=== PATIENT | female | born 1980 | race Hispanic/Latino ===

== ENCOUNTER 2019-09-11 22:37 | Emergency (ER) | payer SELFPAY ==
[2019-09-11 23:44] LABS: Absolute Lymphocytes (CBC) 1.2 K/uL (0.7-4.9); Basophils % 0.3 % (0-1.3); Hematocrit 41.5 % (36.0-45.0); Lymphocytes % 21.6 % (15.3-44.8); MPV 7.9 fL (7.6-11.3); RBC Red Blood Cell Count 4.83 M/uL (3.86-4.86)
[2019-09-12] MEDS ORDERED: ONDANSETRON 4 MG/2 ML VIAL ONE (00:03)
[2019-09-12] MEDS ORDERED: NA CHLORIDE 0.9% 1,000 ML ONE (00:03)
[2019-09-12 00:06] LABS: ALT/SGPT 48 U/L (12-78); AST/SGOT 59 U/L (15-37); Albumin 3.7 g/dL (3.4-5.0); Alkaline Phosphatase 81 U/L (45-117); BUN Blood Urea Nitrogen 7 mg/dL (7-18); Bicarbonate 26 mmol/L (21-32); Bilirubin Direct < 0.1 mg/dL (0-0.2); Bilirubin Total 0.3 mg/dL (0.2-1.0); Glucose Level 101 mg/dL (74-106); Lipase 220 U/L (73-393); Potassium 3.2 mmol/L (3.5-5.1); Protein, Total 8.7 g/dL (6.4-8.2); Sodium Level 138 mmol/L (136-145)
[2019-09-12 00:57] LABS: Urine RBC TNTC /HPF (NONE SEEN)
[2019-09-12 00:58] LABS: Urine Bacteria <20 /HPF (<20)
[2019-09-12] MEDS ORDERED: POTASSIUM CL SA 10 MEQ TAB PO ONE (02:00)
--- NOTE | 2019-09-12 02:27 | ER ---
Nurse's Notes [facility] Name: Jaelyn Johnson Age: 39 yrs Sex: Female : 1980 Arrival Date: 09/11/2019 Time: 22:40 Bed 8 Private MD: Diagnosis: Urinary tract infection, site not specified;Nausea and vomiting;Diarrhea, unspecified;Pneumonia, unspecified organism Presentation: 09/10 22:45 Chief complaint: Friend and/or Co-Worker states: that pt has had weakness and diarrhea. fc Denies any abd pain. Also having nausea and vomiting. Has fever on and off. Was seen by PCP on Tuesday and was told she had a UTI and intestinal infection. Was placed on Pepto, Tylenol, Cipro, Flagyl. Coronavirus screen: Patient denies fever greater than 100.4F, cough, shortness of breath, or difficulty breathing. Ebola Screen: Patient negative for fever greater than or equal to 101.5 degrees Fahrenheit, and additional compatible Ebola Virus Disease symptoms Patient denies exposure to infectious person. Patient denies travel to an Ebola-affected area in the 21 days before illness onset. Initial Sepsis Screen: Does the patient meet any 2 criteria? HR > 90 bpm. Yes Does the patient have a suspected source of infection? No. Patient's initial sepsis screen is negative. Risk Assessment: Do you want to hurt yourself or someone else? Patient reports no desire to harm self or others. Onset of symptoms was September 04, 2019. Care prior to arrival: None. Transition of care: patient was not received from another setting of care. 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 - Social history:: Smoking status: Patient denies any tobacco usage or history of. Patient/guardian denies using alcohol, street drugs. Screenin:05 Abuse screen: Denies threats or abuse. Nutritional screening: No deficits noted. ea Tuberculosis screening: No symptoms or risk factors identified. Fall Risk None identified. Assessment: 23:35 General: Appears uncomfortable, Behavior is appropriate for age. Pain: Denies pain. ea Neuro: Level of Consciousness is awake, alert, obeys commands, Oriented to person, place, time, situation. Respiratory: Airway is patent Respiratory effort is even, unlabored, Respiratory pattern is regular, symmetrical. GI: Abdomen is non-distended. Derm: Skin is pink, warm \T\ dry. 09/11 00:38 Reassessment: Patient and/or family updated on plan of care and expected duration. Pain ea level reassessed. Patient is alert, oriented x 3, equal unlabored respirations, skin warm/dry/pink. Returned from CT. 01:50 Reassessment: Patient and/or family updated on plan of care and expected duration. Pain ea level reassessed. Patient is alert, oriented x 3, equal unlabored respirations, skin warm/dry/pink. 02:14 Reassessment: Patient and/or family updated on plan of care and expected duration. Pain ea level reassessed. Patient is alert, oriented x 3, equal unlabored respirations, skin warm/dry/pink. 02:36 Reassessment: Patient and/or family updated on plan of care and expected duration. Pain ea level reassessed. Patient is alert, oriented x 3, equal unlabored respirations, skin warm/dry/pink. Discharge instruction given to patient, verbalized the understanding of instruction. Pt left ED ambulatory accompanied by family. Vital Signs: 09/10 22:45 BP 118 / 85; Pulse 100; Resp 16; Temp 98.1(O); Pulse Ox 98% on R/A; Weight 68.04 kg fc (R); Height 5 ft. 3 in. (160.02 cm) (R); Pain /10; 09/11 00:40 BP 141 / 94; Pulse 94; Resp 18; Pulse Ox 99% ; ea 01:30 BP 121 / 81; Pulse 85; Resp 18; Pulse Ox 98% on R/A; ea 02:19 BP 117 / 75; Pulse 88; Resp 17; Pulse Ox 98% on R/A; mt 09/10 22:45 Body Mass Index 26.57 (68.04 kg, 160.02 cm) ED Course: 03/24 22:40 Patient arrived in ED. cl3 22:51 Triage completed. fc 22:52 [facility]C [facility]. kb 22:52 Christopher Feliciano MD is Attending Physician. kb 22:52 Arm band placed on Patient placed in an exam room, on a stretcher. fc 23:05 Shoshana Yeh RN is Primary Nurse. ea 23:05 Patient has correct armband on for positive identification. Bed in low position. Call ea light in reach. Side rails up X2. 23:35 Inserted saline lock: 20 gauge in left antecubital area, using aseptic technique. Blood ea collected. 09/11 00:45 CT Abd/Pelvis - IV Contrast Only In Process Unspecified. EDMS 01:58 Chest Single View XRAY In Process Unspecified. EDMS 02:35 IV discontinued, intact, bleeding controlled, No redness/swelling at site. Pressure ea dressing applied. 02:37 No provider procedures requiring assistance completed. ea Administered Medications: 00:20 Drug: NS 0.9% 1000 ml Route: IV; Rate: 1000 ml; Site: left antecubital; ea 02:06 Follow up: Response: No adverse reaction; IV Status: Completed infusion; IV Intake: ea 1000ml 00:20 Drug: Zofran (Ondansetron) 4 mg Route: IVP; Site: left antecubital; ea 02:06 Follow up: Response: No adverse reaction ea 02:06 Drug: Potassium Chloride 20 mEq Route: PO; ea 02:28 Follow up: Response: No adverse reaction ea Intake: 02:06 IV: 1000ml; Total: 1000ml. ea Outcome: 02:27 Discharge ordered by . kb 02:37 Discharged to home ambulatory. ea 02:37 Condition: stable 02:37 Discharge instructions given to patient, Instructed on discharge instructions, follow up and referral plans. medication usage, Demonstrated understanding of instructions, follow-up care, medications, Prescriptions given X 1. 02:38 Patient left the ED. ea Signatures: Dispatcher [employer] EDMS Mariely uStton FNP-C FNP-Ckb Chretien, Felicia, RN RN fc Thompson, Moriah sc Shoshana Yeh RN RN ea Lewis, Charde cl3 Corrections: (The following items were deleted from the chart) 09/10 22:52 22:52 PSHx: None; fc fc
--- NOTE | 2019-09-12 02:27 | EDPHYS ---
Physician Documentation [facility] Name: Jaelyn Johnson Age: 39 yrs Sex: Female : 1980 Arrival Date: 09/11/2019 Time: 22:40 Bed 8 Private MD: KIM Physician Christopher Feliciano HPI: 09/10 23:38 This 39 yrs old Female presents to ER via Ambulatory with complaints of kb Vomiting/Diarrhea. 23:38 The patient presents to the emergency department with nausea, vomiting, diarrhea, kb abdominal pain. Onset: The symptoms/episode began/occurred 2 day(s) ago. Possible causes: unknown. The symptoms are aggravated by nothing. The symptoms are alleviated by nothing. Associated signs and symptoms: Pertinent positives: abdominal pain, diarrhea, nausea, vomiting, Pertinent negatives: anorexia, fever. Severity of symptoms: At their worst the symptoms were moderate in the emergency department the symptoms are unchanged. The patient has not experienced similar symptoms in the past. The patient has not recently seen a physician. Pt reports abd pain, n/v/d. Was seen at the [facility] and started on abx for UTI and colon infection, but still having symptoms. 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 - Social history:: Smoking status: Patient denies any tobacco usage or history of. Patient/guardian denies using alcohol, street drugs. ROS: 23:38 Constitutional: Negative for fever, chills, and weight loss, ENT: Negative for injury, kb pain, and discharge, Neck: Negative for injury, pain, and swelling, Cardiovascular: Negative for chest pain, palpitations, and edema, Respiratory: Negative for shortness of breath, cough, wheezing, and pleuritic chest pain, Back: Negative for injury and pain, : Negative for injury, bleeding, discharge, and swelling, MS/Extremity: Negative for injury and deformity, Skin: Negative for injury, rash, and discoloration, Neuro: Negative for headache, weakness, numbness, tingling, and seizure. 23:38 Abdomen/GI: Positive for abdominal pain, nausea, vomiting, and diarrhea, Negative for constipation, abdominal cramps, abdominal distension, anorexia. Exam: 23:38 Constitutional: This is a well developed, well nourished patient who is awake, alert, kb and in no acute distress. Head/Face: Normocephalic, atraumatic. ENT: Nares patent. No nasal discharge, no septal abnormalities noted. Tympanic membranes are normal and external auditory canals are clear. Oropharynx with no redness, swelling, or masses, exudates, or evidence of obstruction, uvula midline. Mucous membranes moist. Neck: Trachea midline, no thyromegaly or masses palpated, and no cervical lymphadenopathy. Supple, full range of motion without nuchal rigidity, or vertebral point tenderness. No Meningismus. Chest/axilla: Normal chest wall appearance and motion. Nontender with no deformity. No lesions are appreciated. Cardiovascular: Regular rate and rhythm with a normal S1 and S2. No gallops, murmurs, or rubs. Normal PMI, no JVD. No pulse deficits. Respiratory: Lungs have equal breath sounds bilaterally, clear to auscultation and percussion. No rales, rhonchi or wheezes noted. No increased work of breathing, no retractions or nasal flaring. Skin: Warm, dry with normal turgor. Normal color with no rashes, no lesions, and no evidence of cellulitis. MS/ Extremity: Pulses equal, no cyanosis. Neurovascular intact. Full, normal range of motion. Neuro: Awake and alert, GCS 15, oriented to person, place, time, and situation. Cranial nerves II-XII grossly intact. Motor strength 5/5 in all extremities. Sensory grossly intact. Cerebellar exam normal. Normal gait. 23:38 Abdomen/GI: Inspection: abdomen appears normal, Bowel sounds: normal, in all quadrants, Palpation: soft, in all quadrants, mild abdominal tenderness, in all quadrants. Vital Signs: 22:45 BP 118 / 85; Pulse 100; Resp 16; Temp 98.1(O); Pulse Ox 98% on R/A; Weight 68.04 kg fc (R); Height 5 ft. 3 in. (160.02 cm) (R); Pain /10; 09/11 00:40 BP 141 / 94; Pulse 94; Resp 18; Pulse Ox 99% ; ea 01:30 BP 121 / 81; Pulse 85; Resp 18; Pulse Ox 98% on R/A; ea 02:19 BP 117 / 75; Pulse 88; Resp 17; Pulse Ox 98% on R/A; mt 09/10 22:45 Body Mass Index 26.57 (68.04 kg, 160.02 cm) fc MDM: 09/10 22:53 Patient medically screened. garcia 23:38 Data reviewed: vital signs, nurses notes. Data interpreted: Pulse oximetry: on room air kb is 98 %. Interpretation: normal. 09/11 01:29 Counseling: I had a detailed discussion with the patient and/or guardian regarding: the kb historical points, exam findings, and any diagnostic results supporting the discharge/admit diagnosis, lab results, radiology results, the need for outpatient follow up, a family practitioner, to return to the emergency department if symptoms worsen or persist or if there are any questions or concerns that arise at home. 02:24 ED course: Pt educated to stop previously prescribed cipro and start levaquin to cover kb the pneumonia. . 09/10 23:01 Order name: Basic Metabolic Panel; Complete Time: 00:08 kb 09/10 23:01 Order name: CBC with Diff; Complete Time: 23:57 kb 09/10 23:01 Order name: Hepatic Function; Complete Time: 00:08 kb 09/10 23:01 Order name: Lipase; Complete Time: 00:08 kb 09/10 23:01 Order name: Urine Microscopic Only; Complete Time: 01:00 kb 09/11 01:00 Order name: Urine Culture EDMT 09/10 23:01 Order name: IV Saline Lock; Complete Time: 23:38 kb 09/10 23:01 Order name: Labs collected and sent; Complete Time: 23:38 kb 09/10 23:01 Order name: Urine Test (obtain specimen); Complete Time: 00:27 kb 09/11 00:08 Order name: CT Abd/Pelvis - IV Contrast Only kb 09/11 01:30 Order name: Chest Single View XRAY kb 09/10 23:01 Order name: Urine Dipstick-Ancillary (obtain specimen); Complete Time: 00:27 kb Administered Medications: 00:20 Drug: NS 0.9% 1000 ml Route: IV; Rate: 1000 ml; Site: left antecubital; ea 02:06 Follow up: Response: No adverse reaction; IV Status: Completed infusion; IV Intake: ea 1000ml 00:20 Drug: Zofran (Ondansetron) 4 mg Route: IVP; Site: left antecubital; ea 02:06 Follow up: Response: No adverse reaction ea 02:06 Drug: Potassium Chloride 20 mEq Route: PO; ea 02:28 Follow up: Response: No adverse reaction ea Disposition: 07:35 Co-signature as Attending Physician, Christopher Feliciano MD I agree with the assessment and [facility] plan of care. Disposition: 09/12/19 02:27 Discharged to Home. Impression: Urinary tract infection, site not specified, Nausea and vomiting, Diarrhea, unspecified, Pneumonia, unspecified organism. - Condition is Stable. - Discharge Instructions: Viral Gastroenteritis, Adult, [id number], Urinary Tract Infection, Adult, [id number], Community-Acquired Pneumonia, Adult, [id number]. - Prescriptions for Levaquin 500 mg Oral Tablet - take 1 tablet by ORAL route once daily for 7 days; 7 tablet. - Medication Reconciliation Form, Thank You Letter, Antibiotic Education, Prescription Opioid Use form. - Follow up: Emergency Department; When: As needed; Reason: Worsening of condition. Follow up: Private Physician; When: 2 - 3 days; Reason: Recheck today's complaints, Continuance of care, Re-evaluation by your physician. Signatures: Dispatcher [employer] EDMT Mariely Sutton, PRISCILA RODRIGUEZ-Christopher Castellanos MD MD cha Chretien, Felicia, RN RN Shoshana Yeh RN RN ea Corrections: (The following items were deleted from the chart) 09/10 22:52 22:52 PSHx: None; [facility] 09/11 02:38 02:27 09/12/2019 02:27 Discharged to Home. Impression: Urinary tract infection, site ea not specified; Nausea and vomiting; Diarrhea, unspecified; Pneumonia, unspecified organism. Condition is Stable. Forms are Medication Reconciliation Form, Thank You Letter, Antibiotic Education, Prescription Opioid Use. Follow up: Emergency Department; When: As needed; Reason: Worsening of condition. Follow up: Private Physician; When: 2 - 3 days; Reason: Recheck today's complaints, Continuance of care, Re-evaluation by your physician. kb
[2019-09-12 02:46] VITALS: TEMP 98.1
[2019-09-12 02:48] VITALS: O2SAT 98
[2019-09-12 02:49] VITALS: BP 117/75
--- NOTE | 2019-09-12 05:57 | RAD REPORT ---
EXAM DESCRIPTION: Braxton Single View09/12/2019 1:58 am CLINICAL HISTORY: Abdominal pain COMPARISON: none FINDINGS: Mild patchy bilateral lung opacities. . The heart is normal size IMPRESSION: Mild patchy bilateral lung opacities may indicate viral pneumonia
--- NOTE | 2019-09-12 13:00 | RAD REPORT ---
EXAM DESCRIPTION: CT - Abdomen Pelvis W Contrast - 09/12/2019 12:44 am CLINICAL HISTORY: ABD PAIN TECHNIQUE: Contiguous axial images obtained through the abdomen and pelvis following the uneventful administration of IV contrast. Coronal and sagittal reformatted images were provided. This exam was performed according to our departmental dose-optimization program, which includes autom ated exposure control, adjustment of the mA and/or kV according to patient size and/or use of iterati ve reconstruction technique. COMPARISON: None available for comparison. FINDINGS: Lung bases: Patchy multifocal bilateral lower lobe and right middle lobe groundglass opaci ties. Liver: The liver is enlarged and diffusely low in density compatible with steatosis. Gallbladder and biliary system: Unremarkable Pancreas: Unremarkable Spleen: Unremarkable Adrenals: Unremarkable Kidneys: Normal renal cortical enhancement. No calculi. No hydronephrosis. Bowel: Air-fluid levels within the proximal to mid large bowel. No obstruction. No appreciable mucosa l thickening. Appendix: Normal caliber appendix. No findings to suggest acute appendicitis. Urinary bladder: The urinary bladder is partially decompressed. Reproductive: 1.9 x 1.4 x 1.4 cm right ovarian corpus luteal cyst. The uterus and left ovary are unre markable as visualized. Lymph nodes: No pathologically enlarged lymph nodes. Peritoneum: No focal fluid collection. No free air. Vessels: No abdominal aortic aneurysm. Abdominal wall: Small fat-containing umbilical hernia. Bones: Intact IMPRESSION: 1. Nonspecific air-fluid levels present within the large bowel. This can be seen in th e clinical setting of diarrhea. 2. 1.9 cm right ovarian corpus luteum cyst. No follow-up imaging is recommended. Reference: J Am Co ll Radiol 2013;10:675-681 3. Multifocal infiltrates at the lung bases. Differential considerations include atypical pneumonia including viral infection. 4. Other findings as above. Electronically signed by: Magan Molina MD 09/12/2019 1:02 AM CDT Due to temporary technical issues with the PACS/Fluency reporting system, reports are being signed by the in house radiologist as a courtesy to ensure prompt reporting. The interpreting radiologist is f ully responsible for the content of the report.
== END 2019-09-12 02:38 | disposition home or self-care (01) ==
LOC: ER 22:37
DX: R19.7 Diarrhea, unspecified (principal); J18.9 Pneumonia, unspecified organism; N39.0 Urinary tract infection, site not specified
CPT/HCPCS: 36415; 71045; 74177; 80048; 80076; 81015; 83690; 85025; 87086; 87088; 96361; 96374; 99284; Q9967